=== PATIENT | female | born 2000 | race Two or more races ===

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

== ENCOUNTER 2024-10-30 22:33 | Emergency (ER) | payer SELFPAY ==
[~2024-10-30] VITALS: Ht 160 cm; Wt 55.2 kg
[2024-10-30 23:30] LABS: Urine Bacteria None Seen /hpf (None Seen)
[2024-10-30 23:35] LABS: Basophils # (auto) 0.1 10 ^3/uL (0-0.2); Basophils % (auto) 0.6 % (0.0-2.0); Eosinophils # (auto) 0.2 10 ^3/uL (0-0.8); Eosinophils % (auto) 2.2 % (0.0-7.0); Hematocrit 31.1 % (36.0-46.0); Lymphocytes # (auto) 1.9 10 ^3/uL (0.4-5.4); Lymphocytes % (auto) 21.9 % (10.0-50.0); Mean Corpuscular Hemoglobin 32.5 pg (28.0-32.0); Mean Corpuscular Hgb Conc. 35.4 g/dL (32.0-36.0); Mean Corpuscular Volume 91.9 fL (80.0-100.0); Monocytes # (auto) 0.4 10 ^3/uL (0-1.3); Monocytes % (auto) 4.9 % (0.0-12.0); Neutrophils # (auto) 6.2 10 ^3/uL (1.6-8.6); Neutrophils % (auto) 70.4 % (37.0-80.0); Nucleated Red Blood Cells % 0.1 %; Platelet Count (auto) 301 10^3/uL (140-450); Red Blood Cells 3.39 10^6/uL (4.0-5.20); Red Cell Distribution Width 12.6 % (11.8-14.3); White Blood Cell 8.9 10^3/uL (4.4-10.8)
[2024-10-30 23:51] LABS: Albumin 4.6 g/dL (3.2-4.8); Alkaline Phosphatase 60 U/L (46-116); Anion Gap 5 (5-15); BUN/Creatinine Ratio 11.6 (10.0-20.0); Bilirubin, Total 0.4 mg/dL (0.2-1.0); Calcium 9.4 mg/dL (8.7-10.4); Carbon Dioxide 29 mmol/L (20-31); Chloride 104 mmol/L (98-107); Glucose 98 mg/dL (74-106); Potassium 3.8 mmol/L (3.5-5.1); Sodium 138 mmol/L (136-145); Total Protein 6.8 g/dL (5.7-8.2)
[2024-10-31 00:03] LABS: Alanine Aminotransferase < 9 U/L (7-40); Aspartate Aminotransferase < 8 U/L (13-40); Blood Urea Nitrogen 8 mg/dL (9-23)
[2024-10-31 00:11] LABS: Urine Blood 2+ /uL (Negative); Urine Clarity Clear (Clear); Urine Color Light-Yellow (Yellow); Urine Hyaline Cast FEW /lpf (0 - 2); Urine Mucus FEW (None Seen); Urine Protein, UAD Negative (Negative); Urine Specific Gravity 1.023 (1.001-1.035); Urine Squamous Epithelial Cell FEW /hpf (<5); Urine Urobilinogen Normal (Negative); Urine WBC 2 /HPF (0-5); Urine pH 6.5 (5.0-9.0)
--- NOTE | 2024-10-31 01:18 | DVH ---
ULTRASOUND PELVIS HISTORY: Vaginal bleeding TECHNIQUE: Multiple real-time grayscale sonographic images of the pelvis with duplex Doppler color f low, spectral and M-mode analysis. TRANSDUCERS: COMPARISON: None FINDINGS: The uterus measures approximately 6.9 X 4.4 X 5 cm. Endometrium demonstrates homogeneous echogenicity measuring approximately 11 mm. Right ovary measures approximately 3.1 X 2.3 X 2.9 cm and appears unremarkable with normal Doppler co maria luisa flow. Left ovary measures approximately 2.6 X 1.8 X 2 cm and appears unremarkable with normal Doppler color flow. No evidence of pelvic mass or fluid collection. IMPRESSION: No abnormality identified.
[2024-10-31] MEDS ORDERED: MEDR5TAB28 PO (01:25)
--- NOTE | 2024-10-31 01:26 | ED.PDOC ---
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 Says she goes through 4-5 pads a day. States having intermittent cramping. States she has been having irregular menses. He was to be on control due to irregular periods. She was stopped in 2020. Since then she has a menstrual every 1-2 months. Says she was unsure why she was bleeding so long, she was had to come and get checked out. States she has been told she was ovarian cysts in the past. Patient denies any fatigue denies any chest pain denies any shortness of breath. Denies any syncopal episodes. Chief Complaint: Vaginal Bleed Time Seen by MD: 22:39 Reviewed Notes: Nurses Notes Allergies: Uncoded Allergies: almonds (Allergy, Severe, 06/08/20) pecans (Allergy, Severe, 06/08/20) Information Source: Patient Past Medical History PAST MEDICAL HISTORY: Asthma Surgical History: Denies all surgeries PUPPY TRAINER History: Denies all PUPPY TRAINER Hx Family History Family History: Reviewed,noncontributory to illness Social History Smoker: Non-Smoker Alcohol: Denies ETOH Use Drugs: Denies Drug Use Lives In: Home Constitutional: denies: chills, diaphoresis, fatigue, fever, malaise, sweats, weakness, others EENTM: denies: blurred vision, double vision, ear bleeding, ear discharge, ear drainage, ear pain, ear ringing, eye pain, eye redness, hearing loss, mouth pain, mouth swelling, nasal discharge, nose bleeding, nose congestion, nose pain, photophobia, tearing, throat pain, throat swelling, voice changes, others Respiratory: denies: cough, hemoptysis, orthopnea, SOB at rest, shortness of breath, SOB with excertion, stridor, wheezing, others Cardiovascular: denies: chest pain, dizzy spells, diaphoresis, Dyspnea on exertion, edema, irregular heart beat, left arm pain, lightheadedness, palpitations, PND, syncope, others Gastrointestinal: denies: abdomen distended, abdominal pain, blood streaked bowels, constipated, diarrhea, dysphagia, difficulty swallowing, hematemesis, melena, nausea, poor appetite, poor fluid intake, rectal bleeding, rectal pain, vomiting, others Genitourinary: reports: abnormal vagina bleeding; denies: burning, dyspareunia, dysuria, flank pain, frequency, hematuria, incontinence, pain, , vagina discharge, urgency, others Neurological: denies: dizziness, fainting, headache, left sided numbness, left sided weakness, numbness, paresthesia, pre-existing deficit, right sided numbness, right sided weakness, seizure, speech problems, tingling, tremors, weakness, others Musculoskeletal: denies: back pain, gout, joint pain, joint swelling, muscle pain, muscle stiffness, neck pain, others Integumetry: denies: bruises, change in color, change in hair/nails, dryness, laceration, lesions, lumps, rash, wounds, others Allergic/Immunocompromised: denies: Difficulty Healing, Frequent Infections, Hives, Itching, others Hematologic/Lymphatic: denies: anemia, blood clots, easy bleeding, easy bruising, swollen glands, others Physical Exam General Appearance: No Apparent Distress, Normal HEENT: Normal ENT Inspection, Pharynx Normal, TMs Normal Neck: Full Range of Motion, Non-Tender, Normal, Normal Inspection Respiratory: Chest Non-Tender, Lungs Clear, No Accessory Muscle Use, No Respiratory Distress, Normal Breath Sounds Cardiovascular: No Edema, No JVD, No Murmur, No Gallop, Normal Peripheral Pulses, Regular Rate/Rhythm Breast Exam: Deferred Gastrointestinal: No Organomegaly, Non Tender, No Pulsatile Mass, Normal Bowel Sounds, Soft Genitalia: Deferred Pelvic: Deferred Rectal: Deferred Extremities: No calf tenderness, Normal capillary refill, Normal inspection, Normal range of motion, Non-tender, No pedal edema Musculoskeletal : Apperance: Normal 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 Was a procedure done?: No Differential Diagnosis (PUPPY TRAINER) Vaginal Bleeding: Dysmenorrhea, Ectopic X-Ray, Labs, Meds, VS Vital Signs Date Time Temp Pulse Resp B/P (MAP) Pulse Ox O2 Delivery O2 Flow Rate FiO2 10/30/24 22:45 97.8 111 16 121/81 (94) 100 Lab Test 10/30/24 23:15 10/30/24 23:00 Range/Units White Blood Count 8.9 4.4-10.8 10^3/uL Red Blood Count 3.39 L 4.0-5.20 10^6/uL Hemoglobin 11.0 L 12.2-16.2 g/dL Hematocrit 31.1 L 36.0-46.0 % Mean Corpuscular Volume 91.9 80.0-100.0 fL Mean Corpuscular Hemoglobin 32.5 H 28.0-32.0 pg Mean Corpuscular Hemoglobin Concent 35.4 32.0-36.0 g/dL Red Cell Distribution Width 12.6 11.8-14.3 % Platelet Count 301 140-450 10^3/uL Mean Platelet Volume 7.2 6.9-10.8 fL Neutrophils (%) (Auto) 70.4 37.0-80.0 % Lymphocytes (%) (Auto) 21.9 10.0-50.0 % Monocytes (%) (Auto) 4.9 0.0-12.0 % Eosinophils (%) (Auto) 2.2 0.0-7.0 % Basophils (%) (Auto) 0.6 0.0-2.0 % Neutrophils # (Auto) 6.2 1.6-8.6 10 ^3/uL Lymphocytes # (Auto) 1.9 0.4-5.4 10 ^3/uL Monocytes # (Auto) 0.4 0-1.3 10 ^3/uL Eosinophils # (Auto) 0.2 0-0.8 10 ^3/uL Basophils # (Auto) 0.1 0-0.2 10 ^3/uL Nucleated Red Blood Cells 0.1 % Sodium Level 138 136-145 mmol/L Potassium Level 3.8 3.5-5.1 mmol/L Chloride Level 104 98-107 mmol/L Carbon Dioxide Level 29 20-31 mmol/L Anion Gap 5 5-15 Blood Urea Nitrogen 8 L 9-23 mg/dL Creatinine 0.69 0.550-1.02 mg/dL Glomerular Filtration Rate Calc 126 >90 mL/min BUN/Creatinine Ratio 11.6 10.0-20.0 Serum Glucose 98 74-106 mg/dL Calcium Level 9.4 8.7-10.4 mg/dL Total Bilirubin 0.4 0.2-1.0 mg/dL Aspartate Amino Transferase (AST) < 8 L 13-40 U/L Alanine Aminotransferase (ALT) < 9 7-40 U/L Alkaline Phosphatase 60 46-116 U/L Total Protein 6.8 5.7-8.2 g/dL Albumin 4.6 3.2-4.8 g/dL Beta HCG, Quantitative 1.2 L 1.5-4.2 mIU/mL Urine Color Light-yellow Yellow Urine Clarity Clear Clear Urine pH 6.5 5.0-9.0 Urine Specific [place] 1.023 1.001-1.035 Urine Protein Negative Negative Urine Ketones Negative Negative Urine Blood 2+ H Negative /uL Urine Nitrite Negative Negative Urine Bilirubin Negative Negative Urine Urobilinogen Normal Negative mg/dL Urine Leukocyte Esterase Negative Negative /uL Urine RBC 23 0 - 4 /hpf Urine Microscopic WBC 2 0-5 /HPF Urine Squamous Epithelial Cells Few <5 /hpf Urine Bacteria None seen None Seen /hpf Urine Hyaline Casts Few 0 - 2 /lpf Urine Mucus Few None Seen Urine Glucose Normal Normal mg/dL Urine Test Negative Negative X-Ray, Labs, Meds, VS Comment Imaging: X-rays and CT scans were reviewed and interpreted by this provider, imaging shows no fractures and no pathological disease. Pending radiology review. Laboratory: Labs reviewed and interpreted by this provider. No significant abnormalities noted. Patient has prior medical visits reviewed. Med reconciliation performed Vital signs reviewed Time of 1ST Reevaluation: 01:26 Reevaluation 1ST: Improved Patient Education/Counseling: Diagnosis, Treatment, Need For Follow Up (Patient advised to follow-up in the emergency room in the next 24 to 48 hours if symptoms do not improve. Advised follow-up with PCP in the next 3 to 5 days. Patient verbalized understanding. ) Family Education/Counseling: Diagnosis, Treatment Departure 1 Departure Time of Disposition: 01:21 Impression: Primary Impression: Dysmenorrhea Disposition: HOME / SELF CARE / HOMELESS Condition: Fair e-Prescriptions Medroxyprogesterone Acetate (PROVERA) 5 Mg Tab 1 TAB PO DAILY for 10 Days, #10 TAB 11 Refills Prov: MIKA PRIEST 10/31/24 Discharged With: Self Critical Care Note Critical Care Time?: No Stability Stability form required: No Heart Score Heart Score: Heart Score Response (Comments) Value History N/A 0 EKG N/A 0 Age N/A 0 Risk Factors N/A 0 Troponin N/A 0 Total 0 MIKA PRIEST Oct 31, 2024 01:26
[2024-10-31 01:54] VITALS: BP 113/64; PULSE 70; RESP 16; TEMP 98.1; O2SAT 100
== END 2024-10-31 01:55 | disposition home or self-care (01) ==
LOC: ER 22:33
DX: N94.6 Dysmenorrhea, unspecified (principal); J45.909 Unspecified asthma, uncomplicated; Z88.8 Allergy status to other drugs, medicaments and biological substances
CPT/HCPCS: 36415; 76856; 80053; 81001; 81025; 84702; 85025

== ENCOUNTER 2025-02-11 17:27 | Emergency (ER) | payer MEDICAID ==
[~2025-02-11] VITALS: Ht 160 cm; Wt 52.0 kg
[~2025-02-11 17:27] MED LIST: MEDR5TAB28 PO
--- NOTE | 2025-02-11 17:52 | ED.PDOC ---
GI ASSESSMENT HPI Comments 24 year old female presents to the emergency department with a chief complaint of left greater than right pelvic pain onset 1 day. Patient states she began experiencing LT sided suprapubic pain for the past day as well as nausea. She denies fever, vomiting, diarrhea, constipation or dysuria. She states she is not currently having any vaginal bleeding or abnormal discharge. LMP end of november, patient had a miscarriage early October. Patient states she was told she had a LT ovarian cyst, was recommended to follow up with OBGYN, did not follow up. PMHx ovarian cyst, asthma. Denies vomiting, diarrhea, chest pain, shortness of breath, dysuria, hematuria, hematemesis, fevers, chills. No other symptoms or modifying factors present at this time. Time Seen by MD: 17:45 Primary Care Provider: [facility] Reviewed Notes: Medications, Allergies Allergies: Uncoded Allergies: almonds (Allergy, Severe, 06/08/20) pecans (Allergy, Severe, 06/08/20) Home Meds Active Scripts Cephalexin Monohydrate (Cephalexin) 500 Mg Cap, 1 CAP PO QID for 10 Days, #40 CAP Prov:CHENTE SAMS MD 02/11/25 Ondansetron Odt 4MG Tab (ZOFRAN PO) 4 Mg Tb, 4 MG PO TID PRN, #30 TAB Prn nausea/vomiting ODT TAB-DISSOLVE IN MOUTH, THEN SWALLOW Prov:CHENTE SAMS MD 02/11/25 Ibuprofen Micronized (Ibuprofen) 800 Mg Tab, 800 MG PO Q8HP PRN, #30 TAB Prn pain, take with food. 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 Moist mucous membranes.) Neck: Full Range of Motion, Normal Inspection Respiratory: Lungs Clear, No Accessory Muscle Use, No Respiratory Distress, Normal Breath Sounds Cardiovascular: No Edema, No JVD, Regular Rate/Rhythm Breast Exam: Deferred Gastrointestinal: Soft, Tenderness (Left greater than right pelvic tenderness to palpation. No rebound or guarding.) Genitalia: Deferred Pelvic: Deferred Rectal: Deferred Extremities: Normal inspection, Normal range of motion, Non-tender, No pedal edema Neurologic: Alert (Oriented x4), Normal Affect, Normal Mood, Other (Ambulatory) Cerebellar Function: NOT DONE Reflexes: NOT DONE Skin: Dry, Normal Color, Warm Lymphatic: NOT DONE Was a procedure done? Was a procedure done?: No GI differential Dx Differential Diagnosis: Appendicitis, Constipation, Diverticular disease, Ectopic , Gastritis/PUD, Gastroenteritis, Inflammatory BD, Ischemic Bowel, Ovarian cyst/torsion, PID, UTI, Urolithiasis, Food Poisoning, , Bacterial, Viral, Impaction, Kidney Stone X-Ray, Labs, Meds, VS Vital Signs Date Time Temp Pulse Resp B/P (MAP) Pulse Ox O2 Delivery O2 Flow Rate FiO2 02/11/25 19:28 62 18 96 Room Air 02/11/25 19:28 98.9 62 18 104/50 (68) 96 98.9 02/11/25 17:42 98.2 92 18 125/86 (99) 100 98.2 Lab Test 02/11/25 17:52 02/11/25 17:47 Range/Units White Blood Count 8.0 4.4-10.8 10^3/uL Red Blood Count 4.74 4.0-5.20 10^6/uL Hemoglobin 10.0 L 12.2-16.2 g/dL Hematocrit 32.3 L 36.0-46.0 % Mean Corpuscular Volume 68.3 L 80.0-100.0 fL Mean Corpuscular Hemoglobin 21.1 L 28.0-32.0 pg Mean Corpuscular Hemoglobin Concent 30.9 L 32.0-36.0 g/dL Red Cell Distribution Width 17.0 H 11.8-14.3 % Platelet Count 344 140-450 10^3/uL Mean Platelet Volume 6.9 6.9-10.8 fL Neutrophils (%) (Auto) 60.8 37.0-80.0 % Lymphocytes (%) (Auto) 32.9 10.0-50.0 % Monocytes (%) (Auto) 5.6 0.0-12.0 % Eosinophils (%) (Auto) 0.2 0.0-7.0 % Basophils (%) (Auto) 0.5 0.0-2.0 % Neutrophils # (Auto) 4.9 1.6-8.6 10 ^3/uL Lymphocytes # (Auto) 2.6 0.4-5.4 10 ^3/uL Monocytes # (Auto) 0.5 0-1.3 10 ^3/uL Eosinophils # (Auto) 0 0-0.8 10 ^3/uL Basophils # (Auto) 0 0-0.2 10 ^3/uL Nucleated Red Blood Cells 0.3 % Sodium Level 139 136-145 mmol/L Potassium Level 3.7 3.5-5.1 mmol/L Chloride Level 108 H 98-107 mmol/L Carbon Dioxide Level 22 20-31 mmol/L Anion Gap 9 5-15 Blood Urea Nitrogen 5 L 9-23 mg/dL Creatinine 0.85 0.550-1.02 mg/dL Glomerular Filtration Rate Calc 99 >90 mL/min BUN/Creatinine Ratio 5.9 L 10.0-20.0 Serum Glucose 117 H 74-106 mg/dL Calcium Level 10.2 8.7-10.4 mg/dL Beta HCG, Quantitative 0.6 L 1.5-4.2 mIU/mL Urine Color Colorless Yellow Urine Clarity Turbid H Clear Urine pH 8.0 5.0-9.0 Urine Specific [place] 1.009 1.001-1.035 Urine Protein 2+ H Negative Urine Ketones 1+ H Negative Urine Blood 2+ H Negative /uL Urine Nitrite Negative Negative Urine Bilirubin Negative Negative Urine Urobilinogen Normal Negative mg/dL Urine Leukocyte Esterase 3+ Negative /uL Urine RBC 148 0 - 4 /hpf Urine Microscopic WBC 468 H 0-5 /HPF Urine Squamous Epithelial Cells Few <5 /hpf Urine Bacteria Few H None Seen /hpf Urine Glucose Normal Normal mg/dL Urine Test Negative Negative Current Medications Medications (Trade) Dose Ordered Sig/Johny Route Start Time Stop Time Status Last Admin Ketorolac Tromethamine (Toradol Injection) 30 mg ONCE ONCE IV 02/11/25 19:30 02/11/25 19:31 DC 02/11/25 19:41 Metoclopramide HCl (Reglan Injection) 10 mg ONCE ONCE IV 02/11/25 19:30 02/11/25 19:31 DC 02/11/25 19:41 Ceftriaxone Sodium 50 ml @ 100 mls/hr ONCE ONCE IV 02/11/25 19:30 02/11/25 19:59 DC 02/11/25 19:41 Dicyclomine HCl (Bentyl Capsule) 20 mg ONCE ONCE PO 02/11/25 19:30 02/11/25 19:31 DC 02/11/25 19:43 PROCEDURE(s): PELUS - PELVIC REASON: LLQ PAIN ORDER NUMBER(s): [id number], ACCESSION NUMBER(s): [id number] INDICATION: LLQ PAIN TECHNIQUE: Multiple real-time grayscale transabdominal sonographic images along with color and duplex Doppler of the uterus and ovaries were obtained. COMPARISON: US PELVIC on DOS: 10/31/24 FINDINGS: The uterus measures 6.0 x 4.0 x 3.2 cm. The endometrial stripe measures 0.6 cm. The right ovary measures 3.3 x 1.7 x 3.3 cm. The left ovary measures 4.2 x 3.4 x 3.7 cm. Simple left ovarian cyst measuring 3.2 cm. Trace free fluid in the pelvis which is likely physiologic. Subsequent color and duplex Doppler interrogation of the ovaries demonstrated symmetric vascular flow to both ovaries, though this does not exclude the possibility of torsion due to the dual blood supply. IMPRESSION: Simple left ovarian cyst measuring 3.2 cm. EDURE(s): ABPL - CT AB PEL WO CON-NO ORAL OR IV REASON: severe low abd pain, nausea ORDER NUMBER(s): [id number], ACCESSION NUMBER(s): [id number] CLINICAL HISTORY: severe low abd pain, nausea TECHNIQUE: CT of the abdomen and pelvis was performed without intravenous contrast. This exam was performed according to our departmental dose optimization program. Up-to-date CT equipment and radiation dose reduction techniques are utilized as appropriate. CTDI: 5.19 DLP: 268.25 WID: COMPARISON: None FINDINGS: Lower Thorax: Hypodensity of the blood pool relative to the myocardium in dicative of anemia. The lung bases are clear. Normal-sized heart. Liver and Biliary system: Unremarkable. Spleen: Mild splenomegaly. Adrenal Glands and Kidneys: Unremarkable. Pancreas and Retroperitoneum: Unremarkable. Aorta and Major Vessels: Unremarkable. Bowel, Mesentery and Peritoneal space: Normal appendix. Normal caliber small and large bowel. Scattered fluid containing small bowel loops. There is mild ascites predominantly in the pelvis. There is no free air or fluid collection. Pelvis: Circumferential bladder wall thickening. There is a cyst in the left ovary measuring 2.8 cm on series 2, image 68. The uterus and right ovary are grossly unremarkable. There is no pelvic lymphadenopathy. Abdominal wall and Osseous Structures: No destructive osseous lesion. IMPRESSION: 1. Scattered fluid-filled small bowel loops which may be physiologic or related to infectious or inflammatory enteritis. 2. No bowel obstruction, fluid collection, or free air. Normal appendix. 3. Circumferential bladder wall thickening, nonspecific. Correlate with urinalysis if there is clinical concern for cystitis. 4. Left ovarian cyst likely a follicular cyst in a patient this age. 5. Anemia suggested. Correlate with CBC. X-Ray, Labs, Meds, VS Comment 24-year-old female with a history of asthma and miscarriage 2 months ago presenting with pelvic pain and nausea Vitals unremarkable Exam remarkable for left greater than right pelvic tenderness to palpation Rhythm strip independently interpreted by me: Sinus rhythm, rate 92, no ectopy. Pelvic ultrasound: IMPRESSION: Simple left ovarian cyst measuring 3.[address] abdomen and pelvis IMPRESSION: 1. Scattered fluid-filled small bowel loops which may be physiologic or related to infectious or inflammatory enteritis. 2. No bowel obstruction, fluid collection, or free air. Normal appendix. 3. Circumferential bladder wall thickening, nonspecific. Correlate with urinalysis if there is clinical concern for cystitis. 4. Left ovarian cyst likely a follicular cyst in a patient this age. 5. Anemia suggested. Correlate with CBC. CBC, basic metabolic panel and hCG unremarkable. UA abnormal consistent with UTI. Patient treated with the following in the ED: Toradol 30 mg IV, Reglan 10 mg IV, Bentyl 20 mg p.o., Rocephin 1 g IV On re-evaluation, patient states pain has improved. Vitals were stable. Repeat abdominal exam is benign. Hospitalization was considered, however patient had rapid improvement of symptoms with treatment in the ED, and I no longer feel hospitalization is necessary. Tachycardia was likely due to pain, and has now resolved. Patient does not appear septic. Patient appears stable for discharge with close outpatient follow-up with her OBGYN. Rx ibuprofen, Keflex, Zofran Time of 1ST Reevaluation: 18:15 Reevaluation 1ST: Unchanged Time of 2ND Reevaluation: 19:41 Patient Education/Counseling: Diagnosis, Treatment, Prognosis Family Education/Counseling: No Family Present Departure 1 Departure Time of Disposition: 19:41 Impression: Primary Impression: Pelvic pain Additional Impressions: Left ovarian cyst UTI (urinary tract infection) Qualified Codes: N39.0 - Urinary tract infection, site not specified Disposition: HOME / SELF CARE / HOMELESS Condition: Stable Additional Instructions: Your blood tests were unremarkable. Your urine test showed you have a urinary tract infection (bladder infection). Your ultrasound showed a left ovarian cyst. Your CT scan also showed the same ovarian cyst and was consistent with a bladder infection. I have prescribed medication for pain, nausea, and antibiotics to treat your UTI. Follow-up with your OBGYN in 1-2 days. Return to ER for persistent or worsening symptoms. e-Prescriptions Cephalexin Monohydrate (Cephalexin) 500 Mg Cap 1 CAP PO QID for 10 Days, #40 CAP Prov: CHENTE SAMS MD 02/11/25 Ondansetron Odt 4MG Tab (ZOFRAN PO) 4 Mg Tb 4 MG PO TID PRN, #30 TAB Prn nausea/vomiting ODT TAB-DISSOLVE IN MOUTH, THEN SWALLOW Prov: CHENTE SAMS MD 02/11/25 Ibuprofen Micronized (Ibuprofen) 800 Mg Tab 800 MG PO Q8HP PRN, #30 TAB Prn pain, take with food. Prov: CHENTE SAMS MD 02/11/25 Discharged With: Relative Critical Care Note Critical Care Time?: No Stability Stability form required: No I personally scribed for CHENTE SAMS MD ([email or web address]) on 02/11/25 at 17: 52. Electronically submitted by Dinora Aviles ([email or web address]). CHENTE SAMS MD Feb 11, 2025 17:52
[2025-02-11] MEDS ORDERED: DICYCLOMINE HCL (10MG/ML) 2 ML AMPULE IM ONE (18:00)
[2025-02-11] MEDS ORDERED: ONDANSETRON ODT 4 MG TAB PO ONE (18:00)
[2025-02-11] MEDS ORDERED: KETOROLAC TROMETH 60MG/2ML VIAL IM ONE (18:00)
[2025-02-11 18:18] LABS: Potassium 3.7 mmol/L (3.5-5.1); Sodium 139 mmol/L (136-145)
[2025-02-11 18:19] LABS: Anion Gap 9 (5-15); Calcium 10.2 mg/dL (8.7-10.4); Carbon Dioxide 22 mmol/L (20-31)
[2025-02-11 18:20] LABS: Basophils # (auto) 0 10 ^3/uL (0-0.2); Eosinophils # (auto) 0 10 ^3/uL (0-0.8); Eosinophils % (auto) 0.2 % (0.0-7.0); Lymphocytes # (auto) 2.6 10 ^3/uL (0.4-5.4); Lymphocytes % (auto) 32.9 % (10.0-50.0); Monocytes # (auto) 0.5 10 ^3/uL (0-1.3); Neutrophils # (auto) 4.9 10 ^3/uL (1.6-8.6)
[2025-02-11 18:21] LABS: Basophils % (auto) 0.5 % (0.0-2.0); Hematocrit 32.3 % (36.0-46.0); Mean Corpuscular Hemoglobin 21.1 pg (28.0-32.0); Mean Corpuscular Hgb Conc. 30.9 g/dL (32.0-36.0); Mean Corpuscular Volume 68.3 fL (80.0-100.0); Monocytes % (auto) 5.6 % (0.0-12.0); Neutrophils % (auto) 60.8 % (37.0-80.0); Nucleated Red Blood Cells % 0.3 %; Platelet Count (auto) 344 10^3/uL (140-450); Red Blood Cells 4.74 10^6/uL (4.0-5.20)
[2025-02-11 18:24] LABS: BUN/Creatinine Ratio 5.9 (10.0-20.0)
[2025-02-11 18:27] LABS: Blood Urea Nitrogen 5 mg/dL (9-23); Chloride 108 mmol/L (98-107); Glucose 117 mg/dL (74-106)
[2025-02-11 18:30] LABS: Urine Bacteria FEW /hpf (None Seen); Urine Blood 2+ /uL (Negative); Urine Clarity Turbid (Clear); Urine Color Colorless (Yellow); Urine Protein, UAD 2+ (Negative); Urine Specific Gravity 1.009 (1.001-1.035); Urine Squamous Epithelial Cell FEW /hpf (<5); Urine Urobilinogen Normal (Negative); Urine WBC 468 /HPF (0-5)
[2025-02-11] MEDS ORDERED: cefTRIAXone SOD 1,000 MG VL IM ONE (19:30)
--- NOTE | 2025-02-11 19:31 | DVH ---
INDICATION: LLQ PAIN TECHNIQUE: Multiple real-time grayscale transabdominal sonographic images along with color and duplex Doppler of the uterus and ovaries were obtained. COMPARISON: US PELVIC on DOS: 10/31/24 FINDINGS: The uterus measures 6.0 x 4.0 x 3.2 cm. The endometrial stripe measures 0.6 cm. The right ovary measures 3.3 x 1.7 x 3.3 cm. The left ovary measures 4.2 x 3.4 x 3.7 cm. Simple left ovarian cyst measuring 3.2 cm. Trace free fluid in the pelvis which is likely physiologic. Subsequent color and duplex Doppler interrogation of the ovaries demonstrated symmetric vascular flow to both ovaries, though this does not exclude the possibility of torsion due to the dual blood suppl y. IMPRESSION: Simple left ovarian cyst measuring 3.2 cm.
[2025-02-11] MEDS: KETOROLAC TROMETH 30 MG/ML 1ML VIAL IV ONE (19:41)
[2025-02-11] MEDS: cefTRIAXone 1GM/50ML D5W 50 ML IV ONE (19:41)
[2025-02-11] MEDS: METOCLOPRAMIDE HCL 5MG/ml INJ 2ml VIAL IV ONE (19:41)
[2025-02-11] MEDS: DICYCLOMINE HCL 10 MG CAP PO ONE (19:43)
[2025-02-11] MEDS ORDERED: CEPH500C PO (19:44)
[2025-02-11] MEDS ORDERED: ZOFR4T PO (19:44)
[2025-02-11] MEDS ORDERED: IBUP-1455 PO (19:44)
--- NOTE | 2025-02-11 20:25 | DVH ---
CLINICAL HISTORY: severe low abd pain, nausea TECHNIQUE: CT of the abdomen and pelvis was performed without intravenous contrast. This exam was per formed according to our departmental dose optimization program. Up-to-date CT equipment and radiation dose reduction techniques are utilized as appropriate. CTDI: 5.19 DLP: 268.25 WID: COMPARISON: None FINDINGS: Lower Thorax: Hypodensity of the blood pool relative to the myocardium indicative of anemia. The chad g bases are clear. Normal-sized heart. Liver and Biliary system: Unremarkable. Spleen: Mild splenomegaly. Adrenal Glands and Kidneys: Unremarkable. Pancreas and Retroperitoneum: Unremarkable. Aorta and Major Vessels: Unremarkable. Bowel, Mesentery and Peritoneal space: Normal appendix. Normal caliber small and large bowel. Scatter ed fluid containing small bowel loops. There is mild ascites predominantly in the pelvis. There is no free air or fluid collection. Pelvis: Circumferential bladder wall thickening. There is a cyst in the left ovary measuring 2.8 cm o n series 2, image 68. The uterus and right ovary are grossly unremarkable. There is no pelvic lymphad enopathy. Abdominal wall and Osseous Structures: No destructive osseous lesion. IMPRESSION: 1. Scattered fluid-filled small bowel loops which may be physiologic or related to infectious or infl ammatory enteritis. 2. No bowel obstruction, fluid collection, or free air. Normal appendix. 3. Circumferential bladder wall thickening, nonspecific. Correlate with urinalysis if there is clini laura concern for cystitis. 4. Left ovarian cyst likely a follicular cyst in a patient this age. 5. Anemia suggested. Correlate with CBC.
[2025-02-11 21:30] VITALS: BP 110/72; PULSE 60; RESP 16; TEMP 97.8; O2SAT 97
== END 2025-02-11 21:31 | disposition home or self-care (01) ==
LOC: ER 17:27
DX: N39.0 Urinary tract infection, site not specified (principal); N83.202 Unspecified ovarian cyst, left side; R10.2 Pelvic and perineal pain; J45.909 Unspecified asthma, uncomplicated; Z87.898 Personal history of other specified conditions; Z91.09 Other allergy status, other than to drugs and biological substances; Z79.899 Other long term (current) drug therapy
CPT/HCPCS: 36415; 74176; 76830; 76856; 80048; 81001; 81025; 84702; 85025; 87086; 87088; 87186; 96365; 96375; 99285; J0500; J0696; J1885; J2765

== ENCOUNTER 2025-05-12 12:04 | Emergency (ER) | payer MEDICAID ==
[~2025-05-12] VITALS: Ht 157.5 cm; Wt 48.6 kg
[~2025-05-12 12:04] MED LIST changes: +CEPH500C PO; +IBUP-1455 PO; +ZOFR4T PO
[2025-05-12 14:50] VITALS: BP 105/69; PULSE 75; RESP 18; TEMP 98.2; O2SAT 97
--- NOTE | 2025-05-12 15:01 | ED.PDOC ---
HPI Comments 24 year old female presents to the ED with a chief complaint of laceration onset today. Patient states she was messing around wit her sister, ran into a metal pole, hit RT side forehead, RT eyebrow. She is experiencing laceration to RT eyebrow with controlled bleeding. PMHx asthma. Denies LOC, dizziness, blurry vision, nausea, vomiting, diarrhea. No other symptoms or modifying factors present at this time. Chief Complaint: Laceration Time Seen by MD: 14:55 Primary Care Provider: LAYNE Pathak Notes: Nurses Notes, Medications, Allergies Allergies: Uncoded Allergies: almonds (Allergy, Severe, 06/08/20) pecans (Allergy, Severe, 06/08/20) Home Meds Active Scripts Cefdinir (Cefdinir) 300 Mg Cap, 1 CAP PO BID for 7 Days, #14 CAP Prov:TONY FRIEDMAN MD 05/12/25 Cephalexin Monohydrate (Cephalexin) 500 Mg Cap, 1 CAP PO QID for 10 Days, #40 CAP Prov:CHENTE SAMS MD 02/11/25 Ondansetron Odt 4MG Tab (ZOFRAN PO) 4 Mg Tb, 4 MG PO TID PRN, #30 TAB Prn nausea/vomiting ODT TAB-DISSOLVE IN MOUTH, THEN SWALLOW Prov:CHENTE SAMS MD 02/11/25 Ibuprofen Micronized (Ibuprofen) 800 Mg Tab, 800 MG PO Q8HP PRN, #30 TAB Prn pain, take with food. Prov:CHENTE SAMS MD 02/11/25 Medroxyprogesterone Acetate (PROVERA) 5 Mg Tab, 1 TAB PO DAILY for 10 Days, #10 TAB 11 Refills Prov:MIKA PRIEST 10/31/24 Information Source: Patient Mode of Arrival: Ambulatory Severity of Laceration: Deformity, Controlled Bleeding Complexity: Simple Timing: Hours Prehospital treatment: None Laceration Location: Forehead Mechanism: Metal Laceration Length (cm): 3 Depth of Injury: Skin Tendon Injury: 0% Capillary Refill: < 3 seconds Tender: Moderate Past Medical History PAST MEDICAL HISTORY: Asthma Surgical History: Denies all surgeries LPN CMA History: Ovarian Cysts Family History Family History: Reviewed,noncontributory to illness Social History Smoker: Non-Smoker Alcohol: Denies ETOH Use Drugs: Denies Drug Use Lives In: Home Constitutional: denies: chills, diaphoresis, fatigue, fever, malaise, sweats, weakness, others EENTM: denies: blurred vision, double vision, ear bleeding, ear discharge, ear drainage, ear pain, ear ringing, eye pain, eye redness, hearing loss, mouth pain, mouth swelling, nasal discharge, nose bleeding, nose congestion, nose pain, photophobia, tearing, throat pain, throat swelling, voice changes, others Respiratory: denies: cough, hemoptysis, orthopnea, SOB at rest, shortness of breath, SOB with excertion, stridor, wheezing, others Cardiovascular: denies: chest pain, dizzy spells, diaphoresis, Dyspnea on exertion, edema, irregular heart beat, left arm pain, lightheadedness, palpitations, PND, syncope, others Gastrointestinal: denies: abdomen distended, abdominal pain, blood streaked bowels, constipated, diarrhea, dysphagia, difficulty swallowing, hematemesis, melena, nausea, poor appetite, poor fluid intake, rectal bleeding, rectal pain, vomiting, others Genitourinary: denies: abnormal vagina bleeding, burning, dyspareunia, dysuria, flank pain, frequency, hematuria, incontinence, pain, , vagina discharge, urgency, others Neurological: denies: dizziness, fainting, headache, left sided numbness, left sided weakness, numbness, paresthesia, pre-existing deficit, right sided numbness, right sided weakness, seizure, speech problems, tingling, tremors, weakness, others Musculoskeletal: denies: back pain, gout, joint pain, joint swelling, muscle pain, muscle stiffness, neck pain, others Integumetry: reports: laceration (RT eyebrow); denies: bruises, change in color, change in hair/nails, dryness, lesions, lumps, rash, wounds, others Allergic/Immunocompromised: denies: Difficulty Healing, Frequent Infections, Hives, Itching, others Hematologic/Lymphatic: denies: anemia, blood clots, easy bleeding, easy bruising, swollen glands, others Endocrine: denies: excessive hunger, excessive sweating, excessive thirst, excessive urination, flushing, intolerance to cold, intolerance to heat, unexplained weight gain, unexplained weight loss, others Psychiatric: denies: anxiety, bipolar disorder, depression, hopeless, panic disorder, schizophrenia, sleepless, suicidal, others All Other Systems: Reviewed and Negative Physical Exam General Appearance: Mild Distress, Normal HEENT: Normal ENT Inspection, PERRL/EOMI, Pharynx Normal, TMs Normal, Other (Laceration about 3 cm long V-shape between the eye is superficial) Neck: Full Range of Motion, Non-Tender, Normal, Normal Inspection Respiratory: Chest Non-Tender, Lungs Clear, No Accessory Muscle Use, No Respiratory Distress, Normal Breath Sounds Cardiovascular: No Edema, No JVD, No Murmur, No Gallop, Normal Peripheral Pulses, Regular Rate/Rhythm Breast Exam: Deferred Gastrointestinal: No Organomegaly, Non Tender, No Pulsatile Mass, Normal Bowel Sounds, Soft Genitalia: Deferred Pelvic: Deferred Rectal: Deferred Extremities: No calf tenderness, Normal capillary refill, Normal inspection, Normal range of motion, Non-tender, No pedal edema Musculoskeletal : Apperance: Normal Neurologic: Alert, lip cutter and scorer II-XII nml as Tested, No Motor Deficits, Normal Affect, Normal Mood, No Sensory Deficits Cerebellar Function: Normal Reflexes: Normal Skin: Dry, Lacerations, Normal Color, Warm Peripheral Pulses: 1+ carotid (R), 1+ carotid (L) Lymphatic: No Adenopathy Was a procedure done? Was a procedure done?: Yes Sedation Sedation?: No Laceration Repair : Location RT eyebrow Length 3 cm Anesthetic: Nothing Laceration Repair Prep: Saline, Betadine, Shur-Clens, by Irrigation, Manual Scrub Laceration Repair Wound Comple: epidermis/dermis repair Laceration Repair: Dermabond Informed consent obtained: Yes Risks, benefits, and alternati: Yes Differential diagnosis Generic Laceration: Laceration Differential Diagnosis: N/A X-Ray, Labs, Meds, VS Vital Signs Date Time Temp Pulse Resp B/P (MAP) Pulse Ox O2 Delivery O2 Flow Rate FiO2 05/12/25 14:50 75 18 97 Room Air 05/12/25 14:50 98.2 75 18 105/69 (81) 97 98.2 05/12/25 12:05 98.5 94 15 117/67 100 98.5 X-Ray, Labs, Meds, VS Comment Patient and hit against a metal pole has a laceration about two and half to 3 cm superficial G V-shape between the eyes Laceration at post very well so Dermabond has been used with success Dressing Patient will get a Tdap before she goes Time of 1ST Reevaluation: 15:25 Reevaluation 1ST: Unchanged Patient Education/Counseling: Diagnosis, Treatment, Prognosis Family Education/Counseling: No Family Present Departure 1 Departure Time of Disposition: 15:04 Impression: Primary Impression: Fall at home Qualified Codes: W19.XXXA - Unspecified fall, initial encounter; Y92.009 - Unspecified place in unspecified non-institutional (private) residence as the place of occurrence of the external cause Additional Impression: Forehead laceration Qualified Codes: S01.81XA - Laceration without foreign body of other part of head, initial encounter Disposition: 01 HOME / SELF CARE / HOMELESS Condition: Good Additional Instructions: Keep the laceration dry and follow up with your PCP e-Prescriptions Cefdinir (Cefdinir) 300 Mg Cap 1 CAP PO BID for 7 Days, #14 CAP Prov: TONY FRIEDMAN MD 05/12/25 Discharged With: Self Critical Care Note Critical Care Time?: No Stability Stability form required: No Heart Score Heart Score: Heart Score Response (Comments) Value History N/A 0 EKG N/A 0 Age <45 0 Risk Factors No known risk factors 0 Troponin N/A 0 Total 0 I personally scribed for TONY FRIEDMAN MD ([email or web address]) on 05/12/25 at 15:01. Electronically submitted by Dinora Aviles ([email or web address]). TONY FRIEDMAN MD May 12, 2025 15:01
[2025-05-12] MEDS ORDERED: CEFD300C2 PO (15:06)
[2025-05-12] MEDS: TETANUS-DIPTH-ACEL PERTUSSIS 0.5ML SYR Tdap IM ONE (15:07)
== END 2025-05-12 15:11 | disposition home or self-care (01) ==
LOC: ER 12:04
DX: S01.81XA Laceration without foreign body of other part of head, initial encounter (principal); S01.111A Laceration without foreign body of right eyelid and periocular area, initial encounter; J45.909 Unspecified asthma, uncomplicated; Z79.899 Other long term (current) drug therapy; W19.XXXA Unspecified fall, initial encounter; Y93.89 Activity, other specified; Y92.098 Other place in other non-institutional residence as the place of occurrence of the external cause; Y99.8 Other external cause status
CPT/HCPCS: 12013; 90715